=== PATIENT | female | born 1945 | race African-American/Black ===

== ENCOUNTER → 2018-03-15 | Outpatient (CLI) | payer OTHER | END | disposition home or self-care (01) | LOC: KCIC CT 10:57 | DX: K83.8 Other specified diseases of biliary tract (principal); R79.89 Other specified abnormal findings of blood chemistry; Z90.49 Acquired absence of other specified parts of digestive tract; Z98.84 Bariatric surgery status | CPT/HCPCS: 74176 ==

== ENCOUNTER 2021-07-04 11:41 | Inpatient (IN) | payer OTHER ==
[~2021-07-04] VITALS: Ht 162.6 cm; Wt 113.4 kg
[~2021-07-04 11:41] MED LIST: ALLO100T PO; AMLO-186 PO; AMOX1TAB61 PO; ASPI-424 PO; CAPT25TA3 PO; FERR325T14 PO; FURO20TA3 PO; HUM100IN3 SQ; HYDR-3164 PO; LOVA40TA2 PO; METO50TA6 PO; NPH,100V SQ; POTA10TA31 PO
--- NOTE | 2021-07-04 12:19 | PHYS DOC ---
Past Medical History Past Medical History: Diabetes-Type II, High Cholesterol, Hypertension, Other Additional Past Medical Histor: Gout, HYPERPARATHYROIDISM Past Surgical History: Cholecystectomy, Other Additional Past Surgical Histo: Gastric Bypass Smoking Status: Never Smoker Alcohol Use: None Drug Use: None General Adult EDM: Chief Complaint: BRADYCARDIA HPI: HPI: Patient is a 75 year old female who presents with yesterday began feeling weak, a little lightheaded or as if she was going to pass out. She went to her primary care today just for follow-up checkup. They discovered that her heart rate was low. Patient is anywhere from 34-37 heart rate. She states today she is feeling okay. She states that she is now more short of breath than usual. Patient denies chest pain, syncope, headache, increased short of breath, nausea, vomiting, diarrhea, fever, cough, recent illness, focal weakness, numbness or tingling, vision change. Patient does take 50 mg twice daily of metoprolol daily. She states she has been on this medication for at least a year. Patient also has a history of diabetes, kidney disease, high cholesterol, gout, hyperparathyroidism, cholecystectomy and a gastric bypass. Patient does take a baby aspirin daily. She denies any pain at this time. She is currently asymptomatic. Patient is fully vaccinated for Covid. Review of Systems: Review of Systems: Constitutional: Denies fever or chills. [] Eyes: Denies change in visual acuity. [] HENT: Denies nasal congestion or sore throat. [] Respiratory: Denies cough or shortness of breath. [] Cardiovascular: Denies chest pain or edema. [] GI: Denies abdominal pain, nausea, vomiting, bloody stools or diarrhea. [] : Denies dysuria. [] Musculoskeletal: Denies back pain or joint pain. [] Integument: Denies rash. [] Neurologic: Denies headache, focal weakness or sensory changes. +Dizziness. +generalized weakness[] Endocrine: Denies polyuria or polydipsia. [] Lymphatic: Denies swollen glands. [] Psychiatric: Denies depression or anxiety. [] Heart Score: C/O Chest Pain: No HEART Score for Chest Pain: HEART Score for Chest Pain Response (Comments) Value History Slighlty/Non-Suspicious 0 ECG Nonspecific Repolarizatio 1 Age > 65 2 Risk Factors 1 or 2 Risk Factors 1 Troponin < Normal Limit 0 Total 4 Risk Factors: Risk Factors: DM, Current or recent (<one month) smoker, HTN, HLP, family history of CAD, obesity. Risk Scores: Score 0 - 3: 2.5% MACE over next 6 weeks - Discharge Home Score 4 - 6: 20.3% MACE over next 6 weeks - Admit for Clinical Observation Score 7 - 10: 72.7% MACE over next 6 weeks - Early Invasive Strategies Allergies: Allergies: Allergies Coded Allergies Type Severity Reaction Last Updated Verified No Known Drug Allergies 07/04/21 No Physical Exam: PE: Constitutional: Well developed, well nourished, no acute distress, non-toxic appearance. [] HENT: Normocephalic, atraumatic, bilateral external ears normal, oropharynx moist, no oral exudates, nose normal. [] Eyes: PERRLA, EOMI, conjunctiva normal, no discharge. [] Neck: Normal range of motion, no tenderness, supple, no stridor. [] Cardiovascular:Heart rate bradycardia regular, 1st degree rhythm, no murmur [] Lungs & Thorax: Bilateral upper breath sounds clear and lower diminished to auscultation [] Abdomen: Bowel sounds normal, soft, no tenderness, no masses, no pulsatile masses. [] Skin: Warm, dry, no erythema, no rash. [] Back: No tenderness, no CVA tenderness. [] Extremities: No tenderness, no cyanosis, no clubbing, ROM intact, no edema. [] Neurologic: Alert and oriented X 3, normal motor function, normal sensory function, no focal deficits noted. [] Psychologic: Affect normal, judgement normal, mood normal. [] Current Patient Data: Vital Signs: Vital Signs Date Time Temp Pulse Resp B/P (MAP) Pulse Ox O2 Delivery O2 Flow Rate FiO2 07/04/21 11:48 98.0 42 20 192/72 (112) 100 98.0 EKG: EK and read by Dr. Cadet as sinus bradycardia, first-degree and no STEMI Radiology/Procedures: Radiology/Procedures: [] Impression: [facility] [address] [place] [address] IMAGING REPORT Signed PATIENT: KIEL TUCKER ACCOUNT: [id number] : 1945 LOCATION: ER AGE: 75 SEX: F EXAM STATUS: REG ER ORD. PHYSICIAN: DILLON RICHARDSON APRN REASON: LOW HEART RATE PROCEDURE: PORTABLE CHEST 1V EXAM: XR CHEST 1V 07/04/2021 12:11 PM CLINICAL INDICATION: Low heart rate COMPARISON: None TECHNIQUE: AP upright view of the chest FINDINGS: Exam is limited by underpenetration due to body habitus. The cardiac silhouette is within normal limits for technique. Lungs are adequately expanded. No consolidation, pleural effusion, or pneumothorax. No acute osseous abnormality. IMPRESSION: No acute cardiopulmonary abnormality. Electronically signed by: Radha Augustine MD (07/04/2021 1:54 PM) [id number] DICTATED and SIGNED BY: RADHA AUGUSTINE MD DATE: 07/04/21 [id number] 0 Course & Med Decision Making: Course & Med Decision Making Pertinent Labs and Imaging studies reviewed. (See chart for details) See HPI. Alert and oriented x4. Ambulatory steady gait. Skin pink warm and dry. Speaks in full clear sentences. She does sound breathless and so I asked her if she was more short of breath and she states that she does not think she is any more short of breath than usual. Her special needs librarian is Dr. Ashford. Her primary care is Dr. Persaud. Moving all extremities. Neurologically intact. PERRLA. I spoke with Taylor SWINGING CUT OFF SAW OPERATOR from Cardiology and he states he will come see the patient. I spoke to Dr. Ashford who states to give Kayexalate 15 g, insulin, dextrose to get her potassium down. Dr. Cadet to would also give the calcium gluconate 2 g[address] Patient [address] to [address] Leahy. Cardiology has not given me any orders. Patient is currently still asymptomatic. [] Dragon Disclaimer: Draglinus Disclaimer: This electronic medical record was generated, in whole or in part, using a voice recognition dictation system. Departure Departure Impression: Primary Impression: Bradycardia Additional Impression: Acute kidney failure Qualified Codes: N17.9 - Acute kidney failure, unspecified Disposition: ADMITTED INPATIENT Admitting Physician: ARABELLA Condition: STABLE Referrals: UNKNOWN PCP NAME (PCP) DILLON RICHARDSON APRN Jul 04, 2021 12:19
[2021-07-04 12:25] LABS: BASO % 0 % (0-3); EOS # 0.1 x10^3/uL (0.0-0.7); EOS % 2 % (0-3); HEMATOCRIT 29.8 % (36.0-47.0); HEMOGLOBIN 9.6 g/dL (12.0-15.5); LYMPH % 39 % (24-48); MEAN CORPUSCULAR HEMOGLOBIN 32 pg (25-35); MEAN CORPUSCULAR HGB CONC 32 g/dL (31-37); MEAN CORPUSCULAR VOLUME 99 fL (79-100); MONO # 0.7 x10^3/uL (0.0-1.1); MONO % 10 % (0-9); NEUT # 3.8 x10^3/uL (1.8-7.7); NEUT % 50 % (31-73); PLATELET COUNT 167 x10^3/uL (140-400); RED CELL DISTRIBUTION WIDTH 14.1 % (11.5-14.5); WHITE BLOOD COUNT 7.7 x10^3/uL (4.0-11.0)
[2021-07-04 12:35] LABS: ALBUMIN 2.9 g/dL (3.4-5.0); ALBUMIN/GLOBULIN RATIO 0.7 (1.0-1.7); CALCIUM 8.7 mg/dL (8.5-10.1); GFR 18.3; MAGNESIUM 1.9 mg/dL (1.8-2.4); TOTAL BILIRUBIN 0.2 mg/dL (0.2-1.0); TOTAL PROTEIN 6.9 g/dL (6.4-8.2)
[2021-07-04 12:38] LABS: POTASSIUM 6.1 mmol/L (3.5-5.1)
[2021-07-04] MEDS ORDERED: INSULIN REGULAR 100 UNIT/ML 3ML VIAL. IV ONE (13:15)
[2021-07-04] MEDS ORDERED: DEXTROSE 50% 25 GM / 50ML DISP.SYRIN. IV ONE (13:15)
[2021-07-04] MEDS ORDERED: CALCIUM GLUCONATE 1,000 MG/10 ML VIAL. IVP ONE (13:15)
[2021-07-04 13:20] LABS: BILIRUBIN,URINE NEGATIVE (NEG); CLARITY,URINE CLEAR; COLOR,URINE YELLOW; NITRITE,URINE NEGATIVE (NEG); PROTEIN,URINE NEGATIVE (NEG-TRACE); UROBILINOGEN,URINE 0.2 mg/dL (0.2 mg/dL)
[2021-07-04 13:27] LABS: AMPHETAMINE/METHAMPHETAMINE NEG (NEG); BARBITURATES NEG (NEG); BENZODIAZEPINES NEG (NEG); CANNABINOIDS NEG (NEG); COCAINE NEG (NEG); METHADONE NEG (NEG); OPIATES NEG (NEG); PHENCYCLIDINE NEG (NEG)
[2021-07-04 13:28] LABS: HYALINE CASTS, URINE MODERATE /HPF
[2021-07-04 13:29] LABS: AMORPHOUS SEDIMENT,UR PRESENT /HPF; BACTERIA,URINE FEW /HPF (0-FEW); RBC,URINE 0 /HPF (0-2)
[2021-07-04] MEDS ORDERED: ACETAMINOPHEN 325 MG TABLET. PO PRN ×2 (13:30→14:45)
[2021-07-04] MEDS ORDERED: SODIUM POLYSTYRENE SULFON/SORB 15 GM/60 ML ORAL.SUSP. PO ONE (13:30)
--- NOTE | 2021-07-04 13:56 | RAD ---
EXAM: XR CHEST 1V 07/04/2021 12:11 PM CLINICAL INDICATION: Low heart rate COMPARISON: None TECHNIQUE: AP upright view of the chest FINDINGS: Exam is limited by underpenetration due to body habitus. The cardiac silhouette is within n ormal limits for technique. Lungs are adequately expanded. No consolidation, pleural effusion, or pne umothorax. No acute osseous abnormality. IMPRESSION: No acute cardiopulmonary abnormality. Electronically signed by: Radha Augustine MD (07/04/2021 1:54 PM) [id number]
--- NOTE | 2021-07-04 14:30 | PDOC1 ---
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 She also has been complaining of generalized weakness and shortness of breath. Currently denies any chest pain, syncope, palpitations, headache, nausea vomiting, diarrhea or dysuria. Denies any recent sick contacts. On arrival to the emergency department her blood pressure was elevated in the 190s systolic and also her heart rate with wrist pain 37-47. She does take 50 mg of metoprolol twice daily. She states he has been taking this particular medication for a year. She also takes aspirin daily. Patient is vaccinated for Covid. Past Medical/Surgical History: PMH/PSH: Past Medical History: Diabetes-Type II, High Cholesterol, Hypertension, Gout, HYPERPARATHYROIDISM Past Surgical History: Cholecystectomy, Gastric Bypass Allergies: Allergies: Coded Allergies: No Known Drug Allergies (Unverified , 07/04/21) Family History: Family History: Diabetes in the father and CHF in the mother Social History: Social History: Smoking Status: Never Smoker Alcohol Use: None Drug Use: None Current Medications: Current Medications Current Medications Calcium Gluconate (Calcium Gluconate) 2,000 mg 1X ONCE IVP Last administered on 07/04/21at 13:38; Start 07/04/21 at 13:15; Stop 07/04/21 at 13:17; Status DC Dextrose (Dextrose 50%-Water Syringe) 25 gm 1X ONCE IV Last administered on 07/04/21at 13:36; Start 07/04/21 at 13:15; Stop 07/04/21 at 13:17; Status DC Insulin Human Regular (HumuLIN R VIAL) 10 unit 1X ONCE IV Last administered on 07/04/21at 13:55; Start 07/04/21 at 13:15; Stop 07/04/21 at 13:17; Status DC Sodium Polystyrene Sulfonate (Kayexalate) 15 gm 1X ONCE PO Last administered on 07/04/21at 13:37; Start 07/04/21 at 13:30; Stop 07/04/21 at 13:31; Status DC Acetaminophen (Tylenol) 650 mg PRN Q4HRS PRN PO FEVER > 100.3'F; Start 07/04/21 at 13:30; Stop 07/05/21 at 13:29 Amlodipine Besylate (Norvasc) 5 mg DAILY PO ; Start 07/04/21 at 15:00 Aspirin (Ecotrin) 81 mg DAILY PO ; Start 07/04/21 at 15:00 Atorvastatin Calcium (Lipitor) 10 mg DAILY PO ; Start 07/04/21 at 15:00 Hydralazine HCl (Apresoline Inj) 10 mg PRN Q4HRS PRN IVP ELEVATED BP, SEE COMMENTS; Start 07/04/21 at 13:45 Active Scripts Active Ferrous Sulfate 325 Mg Tablet 1 Tab PO DAILY [place] 5-325 Tablet (Acetaminophen/Hydrocodone Bitart) 1 Each Tablet 1 Tab PO BID Augmentin 875-125 Tablet (Amoxicillin/Potassium Clav) 1 Each Tablet 1 Tab PO BID Reported Humulin N (Nph, Human Insulin Isophane) 100 Unit/1 Ml Vial 25 Unit SQ DAILY08 Amlodipine Besylate 5 Mg Tablet 1 Tab PO DAILY Allopurinol 100 Mg Tablet 1 Tab PO BID Adult Low Dose Aspirin Ec (Aspirin) 81 Mg Tablet.dr 1 Tab PO DAILY Humulin 70/30 Kwikpen (Hum Insulin Nph/Reg Insulin Hm) 100 Unit/1 Ml Insuln.pen 35 Units SQ HS Lovastatin 40 Mg Tablet 1 Tab PO DAILY Metoprolol Tartrate 50 Mg Tablet 1 Tab PO BID Captopril 25 Mg Tablet 1 Tab PO DAILY ROS: Review of Systems Review of System REVIEW OF SYSTEMS: GENERAL: Positive for generalized weakness SKIN: No bruising, hair changes or rashes. EYES: No blurred, double or loss of vision. NOSE AND THROAT: No history of nosebleeds, hoarseness or sore throat. HEART: Positive for shortness of breath LUNGS: Denies cough, hemoptysis, wheezing or shortness of breath. GASTROINTESTINAL: Denies changes in appetite, nausea, vomiting, diarrhea or constipation. GENITOURINARY: No history of frequency, urgency, hesitancy or nocturia. NEUROLOGIC: Denies history of numbness, tingling, or tremor. PSYCHIATRIC: No history of panic, anxiety or depression. ENDOCRINE: No history of heat or cold intolerance, polyuria or polydipsia. EXTREMITIES: Denies joint pain, pain on walking or stiffness. Physical Exam: Vital Signs: Vital Signs Date Time Temp Pulse Resp B/P (MAP) Pulse Ox O2 Delivery O2 Flow Rate FiO2 07/04/21 11:48 98.0 42 20 192/72 (112) 100 98.0 Physcial Exam: General: Well developed, well nourished, no acute distress, well appearing HEENT: Pupils equally round and reactive to light, EOMI, no discharge, normal conjunctiva Neck: Supple, no nuchal rigidity, no JVD, trachea midline, no tenderness Cardiac: RRR, no murmurs, no gallops, no rubs Chest/Lungs: CTAB, no wheeze, no rhonchi, no crackles Abdomen: soft, non-distended, no guarding, no peritoneal signs, non-tender Back: No tenderness Extremities: no edema, pulses intact, non-tender,capillary refill <3 sec bilateral upper and lower extremities, Neuro: Alert and oriented x 4, no focal deficits, normal speech Labs: Labs: Laboratory Tests Test 07/04/21 12:10 07/04/21 13:10 White Blood Count 7.7 x10^3/uL (4.0-11.0) Red Blood Count 3.00 x10^6/uL (3.50-5.40) Hemoglobin 9.6 g/dL (12.0-15.5) Hematocrit 29.8 % (36.0-47.0) Mean Corpuscular Volume 99 fL (79-100) Mean Corpuscular Hemoglobin 32 pg (25-35) Mean Corpuscular Hemoglobin Concent 32 g/dL (31-37) Red Cell Distribution Width 14.1 % (11.5-14.5) Platelet Count 167 x10^3/uL (140-400) Neutrophils (%) (Auto) 50 % (31-73) Lymphocytes (%) (Auto) 39 % (24-48) Monocytes (%) (Auto) 10 % (0-9) Eosinophils (%) (Auto) 2 % (0-3) Basophils (%) (Auto) 0 % (0-3) Neutrophils # (Auto) 3.8 x10^3/uL (1.8-7.7) Lymphocytes # (Auto) 3.0 x10^3/uL (1.0-4.8) Monocytes # (Auto) 0.7 x10^3/uL (0.0-1.1) Eosinophils # (Auto) 0.1 x10^3/uL (0.0-0.7) Basophils # (Auto) 0.0 x10^3/uL (0.0-0.2) Sodium Level 142 mmol/L (136-145) Potassium Level 6.1 mmol/L (3.5-5.1) Chloride Level 113 mmol/L (98-107) Carbon Dioxide Level 21 mmol/L (21-32) Anion Gap 8 (6-14) Blood Urea Nitrogen 48 mg/dL (7-20) Creatinine 3.0 mg/dL (0.6-1.0) Estimated GFR (Cockcroft-Gault) 18.3 BUN/Creatinine Ratio 16 (6-20) Glucose Level 142 mg/dL (70-99) Calcium Level 8.7 mg/dL (8.5-10.1) Magnesium Level 1.9 mg/dL (1.8-2.4) Total Bilirubin 0.2 mg/dL (0.2-1.0) Aspartate Amino Transf (AST/SGOT) 66 U/L (15-37) Alanine Aminotransferase (ALT/SGPT) 102 U/L (14-59) Alkaline Phosphatase 186 U/L (46-116) Troponin I Quantitative < 0.017 ng/mL (0.000-0.055) DU-Mmq-X-Type Natriuretic Peptide 2237 pg/mL (0-449) Total Protein 6.9 g/dL (6.4-8.2) Albumin 2.9 g/dL (3.4-5.0) Albumin/Globulin Ratio 0.7 (1.0-1.7) Lipase 159 U/L (73-393) Urine Collection Type Unknown Urine Color Yellow Urine Clarity Clear Urine pH 5.0 (<5.0-8.0) Urine Specific [place] 1.015 (1.000-1.030) Urine Protein Negative mg/dL (NEG-TRACE) Urine Glucose (UA) Negative mg/dL (NEG) Urine Ketones (Stick) Trace mg/dL (NEG) Urine Blood Negative (NEG) Urine Nitrite Negative (NEG) Urine Bilirubin Negative (NEG) Urine Urobilinogen Dipstick 0.2 mg/dL (0.2 mg/dL) Urine Leukocyte Esterase Negative (NEG) Urine RBC 0 /HPF (0-2) Urine WBC 1-4 /HPF (0-4) Urine Squamous Epithelial Cells Many /LPF Urine Amorphous Sediment Present /HPF Urine Bacteria Few /HPF (0-FEW) Urine Hyaline Casts Moderate /HPF Urine Mucus Slight /LPF Urine Opiates Screen Neg (NEG) Urine Methadone Screen Neg (NEG) Urine Barbiturates Neg (NEG) Urine Phencyclidine Screen Neg (NEG) Urine Amphetamine/Methamphetamine Neg (NEG) Urine Benzodiazepines Screen Neg (NEG) Urine Cocaine Screen Neg (NEG) Urine Cannabinoids Screen Neg (NEG) Urine Ethyl Alcohol Neg (NEG) Laboratory Tests Test 07/04/21 12:10 07/04/21 13:10 White Blood Count 7.7 x10^3/uL (4.0-11.0) Red Blood Count 3.00 x10^6/uL (3.50-5.40) Hemoglobin 9.6 g/dL (12.0-15.5) Hematocrit 29.8 % (36.0-47.0) Mean Corpuscular Volume 99 fL (79-100) Mean Corpuscular Hemoglobin 32 pg (25-35) Mean Corpuscular Hemoglobin Concent 32 g/dL (31-37) Red Cell Distribution Width 14.1 % (11.5-14.5) Platelet Count 167 x10^3/uL (140-400) Neutrophils (%) (Auto) 50 % (31-73) Lymphocytes (%) (Auto) 39 % (24-48) Monocytes (%) (Auto) 10 % (0-9) Eosinophils (%) (Auto) 2 % (0-3) Basophils (%) (Auto) 0 % (0-3) Neutrophils # (Auto) 3.8 x10^3/uL (1.8-7.7) Lymphocytes # (Auto) 3.0 x10^3/uL (1.0-4.8) Monocytes # (Auto) 0.7 x10^3/uL (0.0-1.1) Eosinophils # (Auto) 0.1 x10^3/uL (0.0-0.7) Basophils # (Auto) 0.0 x10^3/uL (0.0-0.2) Sodium Level 142 mmol/L (136-145) Potassium Level 6.1 mmol/L (3.5-5.1) Chloride Level 113 mmol/L (98-107) Carbon Dioxide Level 21 mmol/L (21-32) Anion Gap 8 (6-14) Blood Urea Nitrogen 48 mg/dL (7-20) Creatinine 3.0 mg/dL (0.6-1.0) Estimated GFR (Cockcroft-Gault) 18.3 BUN/Creatinine Ratio 16 (6-20) Glucose Level 142 mg/dL (70-99) Calcium Level 8.7 mg/dL (8.5-10.1) Magnesium Level 1.9 mg/dL (1.8-2.4) Total Bilirubin 0.2 mg/dL (0.2-1.0) Aspartate Amino Transf (AST/SGOT) 66 U/L (15-37) Alanine Aminotransferase (ALT/SGPT) 102 U/L (14-59) Alkaline Phosphatase 186 U/L (46-116) Troponin I Quantitative < 0.017 ng/mL (0.000-0.055) HC-Rhi-E-Type Natriuretic Peptide 2237 pg/mL (0-449) Total Protein 6.9 g/dL (6.4-8.2) Albumin 2.9 g/dL (3.4-5.0) Albumin/Globulin Ratio 0.7 (1.0-1.7) Lipase 159 U/L (73-393) Urine Collection Type Unknown Urine Color Yellow Urine Clarity Clear Urine pH 5.0 (<5.0-8.0) Urine Specific [place] 1.015 (1.000-1.030) Urine Protein Negative mg/dL (NEG-TRACE) Urine Glucose (UA) Negative mg/dL (NEG) Urine Ketones (Stick) Trace mg/dL (NEG) Urine Blood Negative (NEG) Urine Nitrite Negative (NEG) Urine Bilirubin Negative (NEG) Urine Urobilinogen Dipstick 0.2 mg/dL (0.2 mg/dL) Urine Leukocyte Esterase Negative (NEG) Urine RBC 0 /HPF (0-2) Urine WBC 1-4 /HPF (0-4) Urine Squamous Epithelial Cells Many /LPF Urine Amorphous Sediment Present /HPF Urine Bacteria Few /HPF (0-FEW) Urine Hyaline Casts Moderate /HPF Urine Mucus Slight /LPF Urine Opiates Screen Neg (NEG) Urine Methadone Screen Neg (NEG) Urine Barbiturates Neg (NEG) Urine Phencyclidine Screen Neg (NEG) Urine Amphetamine/Methamphetamine Neg (NEG) Urine Benzodiazepines Screen Neg (NEG) Urine Cocaine Screen Neg (NEG) Urine Cannabinoids Screen Neg (NEG) Urine Ethyl Alcohol Neg (NEG) Images: Images PROCEDURE: PORTABLE CHEST 1V EXAM: XR CHEST 1V 07/04/2021 12:11 PM CLINICAL INDICATION: Low heart rate COMPARISON: None TECHNIQUE: AP upright view of the chest FINDINGS: Exam is limited by underpenetration due to body habitus. The cardiac silhouette is within normal limits for technique. Lungs are adequately expanded. No consolidation, pleural effusion, or pneumothorax. No acute osseous abnormality. IMPRESSION: No acute cardiopulmonary abnormality. Assessment/Plan Assessment/Plan Acute symptomatic bradycardia Hyperkalemia Hypertensive emergency Acute on chronic kidney injury likely due to vasomotor nephropathy Transaminitis Elevated BNP possibly due to acute volume overload Anemia of chronic disease Morbid obesity Severe protein malnutrition Admit to hospitalist for further management Cardiology consult Nephrology consult for kidney injury Continue telemetry monitoring Hold all beta-blockers Will resume Norvasc Continue IV fluids P.o. Kayexalate and IV insulin/D50 for shifting potassium into cells Trend chemistries Heparin for DVT prophylaxis Cardiac/ADA diet CODE STATUS full Discussed with RN and SW Disposition inpatient management as above DPOA: Dav Shearer Justifications for Admission Other Justification DAV BEE MD Jul 04, 2021 14:30
--- NOTE | 2021-07-04 14:41 | EKG ---
[facility] [address] [place] [address] Test Date: 2021-07-04 Test Time: 11:48:16 Pat Name: KIEL TUCKER Department: Room: 6 1 Gender: F Pbx Wire Chief: : 1945 Requested By: DILLON RICHARDSON Order Number: [id number] Reading MD: Lucio Neves MD Measurements Intervals [place] Rate: 44 P: 54 [place]: 216 QRS: -43 QRSD: 96 T: 54 QT: 476 QTc: 410 Interpretive Statements SINUS BRADYCARDIA LAD NON-SPECIFIC ST/T CHANGES Electronically Signed On 07-04-2021 17:32:57 CDT by Lucio Neves MD
[2021-07-04] MEDS ORDERED: DOCUSATE SODIUM 100 MG CAPSULE. PO PRN (14:45)
[2021-07-04] MEDS ORDERED: DEXTROSE 50% 25 GM / 50ML DISP.SYRIN. IV PRN (14:45)
[2021-07-04] MEDS ORDERED: PROCHLORPERAZINE 10 MG/2 ML VIAL. IV PRN (14:45)
[2021-07-04] MEDS ORDERED: ONDANSETRON PF 4 MG/2 ML VIAL. IVP PRN (14:45)
[2021-07-04] MEDS ORDERED: SENNOSIDES 8.6 MG TABLET PO PRN (14:45)
--- NOTE | 2021-07-04 15:04 | PDOC2 ---
CONSULT Date of Consult Date of Consult DATE: 07/04/21 TIME: 14:56 Reason for Consult Reason for Consult: HIGH K AND RAFAT Referring Physician Referring Physician: CRISTAL Identification/Chief Complaint Chief Complaint WEAKNESS Source Source: Chart review, Patient History of Present Illness Reason for Visit: THIS IS A 75 YR WITH WEAKNESS AND DIZZINESS AND AT TIMES SHE FELT LIKE PASSING OUT. SHE WAS AT THE OFFICE TODAY SEEING RENAL REGISTER IN [facility]. AFTER EVALUATION SHE WAS APPROPRIATELY REFERRED TO THE ER. SHE DOES HAVE CKD STAGE 3B WITH BASELINE CR OF ABOUT 1.7. LYTES AND ACID BASE BALANCE HAVE ALWAYS BEEN STABLE. HER CKD IS DUE TO DM II. HR OUTSIDE OF HERE HAS ON AVG ABOUT 40 IT WAS IN THE OFFICE. HERE HR OF 40-45. HEMODYNAMICALLY STABLE. NO NEPHROTOXINS NOTED. NO OTHER HX, NO HX OF ANY KIDNEY OR BLADDER SURGERIES HEMATURIA DYSURIA OR FREQUENCY. SHE HAS OCC NOCTURIA. SHE HAS BEEN FULLY VACCINATED FOR [id number] Past Medical History Cardiovascular: CAD, HTN, Hyperlipidemia Musculoskeletal: Osteoarthritis Rheumatologic: Gout Renal/: Chronic renal insuff Endocrine: Diabetes, Hyperparathyroidism Past Surgical History Past Surgical History: Cholecystectomy, Other Family History Family History: Diabetes, Hypertension, Other Social History No ALCOHOL: none Drugs: None Lives: with Family Current Problem List Problem List Problems Medical Problems: (1) Acute kidney failure Status: Acute (2) Bradycardia Status: Acute Current Medications Current Medications Current Medications Calcium Gluconate (Calcium Gluconate) 2,000 mg 1X ONCE IVP Last administered on 07/04/21at 13:38; Start 07/04/21 at 13:15; Stop 07/04/21 at 13:17; Status DC Dextrose (Dextrose 50%-Water Syringe) 25 gm 1X ONCE IV Last administered on 07/04/21at 13:36; Start 07/04/21 at 13:15; Stop 07/04/21 at 13:17; Status DC Insulin Human Regular (HumuLIN R VIAL) 10 unit 1X ONCE IV Last administered on 07/04/21at 13:55; Start 07/04/21 at 13:15; Stop 07/04/21 at 13:17; Status DC Sodium Polystyrene Sulfonate (Kayexalate) 15 gm 1X ONCE PO Last administered on 07/04/21at 13:37; Start 07/04/21 at 13:30; Stop 07/04/21 at 13:31; Status DC Acetaminophen (Tylenol) 650 mg PRN Q4HRS PRN PO FEVER > 100.3'F; Start 07/04/21 at 13:30; Stop 07/05/21 at 13:29 Amlodipine Besylate (Norvasc) 5 mg DAILY PO ; Start 07/04/21 at 15:00 Aspirin (Ecotrin) 81 mg DAILY PO ; Start 07/04/21 at 15:00 Atorvastatin Calcium (Lipitor) 10 mg DAILY PO ; Start 07/04/21 at 15:00 Hydralazine HCl (Apresoline Inj) 10 mg PRN Q4HRS PRN IVP ELEVATED BP, SEE COMMENTS; Start 07/04/21 at 13:45 Sennosides (Senna) 17.2 mg PRN BID PRN PO CONSTIPATION; Start 07/04/21 at 14:45 Docusate Sodium (Colace) 100 mg PRN DAILY PRN PO HARD STOOLS; Start 07/04/21 at 14:45 Ondansetron HCl (Zofran) 4 mg PRN Q6HRS PRN IVP NAUSEA/VOMITING; Start 07/04/21 at 14:45 Dextrose (Dextrose 50%-Water Syringe) 12.5 gm PRN Q15MIN PRN IV SEE COMMENTS; Start 07/04/21 at 14:45 Sodium Chloride 1,000 ml @ 100 mls/hr Q10H IV ; Start 07/04/21 at 15:00 Acetaminophen (Tylenol) 650 mg PRN Q4HRS PRN PO TEMP OVER 100.4F OR MILD PAIN; Start 07/04/21 at 14:45 Heparin Sodium (Porcine) (Heparin Sodium) 5,000 unit Q12HR SQ ; Start 07/04/21 at 21:00 Prochlorperazine Edisylate (Compazine) 10 mg PRN Q6HRS PRN IV NAUSEA/VOMITING 2ND CHOICE; Start 07/04/21 at 14:45 Active Scripts Active Ferrous Sulfate 325 Mg Tablet 1 Tab PO DAILY [place] 5-325 Tablet (Acetaminophen/Hydrocodone Bitart) 1 Each Tablet 1 Tab PO BID Augmentin 875-125 Tablet (Amoxicillin/Potassium Clav) 1 Each Tablet 1 Tab PO BID Reported Humulin N (Nph, Human Insulin Isophane) 100 Unit/1 Ml Vial 25 Unit SQ DAILY08 Amlodipine Besylate 5 Mg Tablet 1 Tab PO DAILY Allopurinol 100 Mg Tablet 1 Tab PO BID Adult Low Dose Aspirin Ec (Aspirin) 81 Mg Tablet.dr 1 Tab PO DAILY Humulin 70/30 Kwikpen (Hum Insulin Nph/Reg Insulin Hm) 100 Unit/1 Ml Insuln.pen 35 Units SQ HS Lovastatin 40 Mg Tablet 1 Tab PO DAILY Metoprolol Tartrate 50 Mg Tablet 1 Tab PO BID Captopril 25 Mg Tablet 1 Tab PO DAILY Allergies Allergies: Coded Allergies: No Known Drug Allergies (Unverified , 07/04/21) ROS General: YES: Fatigue, Malaise PSYCHOLOGICAL ROS: YES: Anxiety Eyes: Yes Decreased vision ALLERGY AND IMMUNOLOGY: YES: Seasonal Allergies Respiratory: YES: Cough Cardiovascular: yes Lt [place] Gastrointestinal: Yes Constipation Genitourinary: YES Other (NOCTURIA) Musculoskeletal: Yes Muscular Weakness Neurological: Yes Dizziness, Yes Weakness Skin: Yes Dry Skin Physical Exam General: Alert, Oriented X3, Cooperative, No acute distress HEENT: Atraumatic, PERRLA Lungs: Clear to auscultation Heart: Other (PIPO) Abdomen: Normal bowel sounds, Soft Extremities: No cyanosis Skin: No breakdown Neuro: Normal speech Psych/Mental Status: Mental status NL, Mood NL MUSCULOSKELETAL: No joint tenderness, No deformity, No swelling Vitals VITALS Vital Signs Date Time Temp Pulse Resp B/P (MAP) Pulse Ox O2 Delivery O2 Flow Rate FiO2 07/04/21 11:48 98.0 42 20 192/72 (112) 100 98.0 Labs Labs Laboratory Tests Test 07/04/21 12:10 07/04/21 13:10 07/04/21 13:44 White Blood Count 7.7 x10^3/uL (4.0-11.0) Red Blood Count 3.00 x10^6/uL (3.50-5.40) Hemoglobin 9.6 g/dL (12.0-15.5) Hematocrit 29.8 % (36.0-47.0) Mean Corpuscular Volume 99 fL (79-100) Mean Corpuscular Hemoglobin 32 pg (25-35) Mean Corpuscular Hemoglobin Concent 32 g/dL (31-37) Red Cell Distribution Width 14.1 % (11.5-14.5) Platelet Count 167 x10^3/uL (140-400) Neutrophils (%) (Auto) 50 % (31-73) Lymphocytes (%) (Auto) 39 % (24-48) Monocytes (%) (Auto) 10 % (0-9) Eosinophils (%) (Auto) 2 % (0-3) Basophils (%) (Auto) 0 % (0-3) Neutrophils # (Auto) 3.8 x10^3/uL (1.8-7.7) Lymphocytes # (Auto) 3.0 x10^3/uL (1.0-4.8) Monocytes # (Auto) 0.7 x10^3/uL (0.0-1.1) Eosinophils # (Auto) 0.1 x10^3/uL (0.0-0.7) Basophils # (Auto) 0.0 x10^3/uL (0.0-0.2) Sodium Level 142 mmol/L (136-145) Potassium Level 6.1 mmol/L (3.5-5.1) Chloride Level 113 mmol/L (98-107) Carbon Dioxide Level 21 mmol/L (21-32) Anion Gap 8 (6-14) Blood Urea Nitrogen 48 mg/dL (7-20) Creatinine 3.0 mg/dL (0.6-1.0) Estimated GFR (Cockcroft-Gault) 18.3 BUN/Creatinine Ratio 16 (6-20) Glucose Level 142 mg/dL (70-99) Calcium Level 8.7 mg/dL (8.5-10.1) Magnesium Level 1.9 mg/dL (1.8-2.4) Total Bilirubin 0.2 mg/dL (0.2-1.0) Aspartate Amino Transf (AST/SGOT) 66 U/L (15-37) Alanine Aminotransferase (ALT/SGPT) 102 U/L (14-59) Alkaline Phosphatase 186 U/L (46-116) Troponin I Quantitative < 0.017 ng/mL (0.000-0.055) VB-Thj-U-Type Natriuretic Peptide 2237 pg/mL (0-449) Total Protein 6.9 g/dL (6.4-8.2) Albumin 2.9 g/dL (3.4-5.0) Albumin/Globulin Ratio 0.7 (1.0-1.7) Lipase 159 U/L (73-393) Urine Collection Type Unknown Urine Color Yellow Urine Clarity Clear Urine pH 5.0 (<5.0-8.0) Urine Specific [place] 1.015 (1.000-1.030) Urine Protein Negative mg/dL (NEG-TRACE) Urine Glucose (UA) Negative mg/dL (NEG) Urine Ketones (Stick) Trace mg/dL (NEG) Urine Blood Negative (NEG) Urine Nitrite Negative (NEG) Urine Bilirubin Negative (NEG) Urine Urobilinogen Dipstick 0.2 mg/dL (0.2 mg/dL) Urine Leukocyte Esterase Negative (NEG) Urine RBC 0 /HPF (0-2) Urine WBC 1-4 /HPF (0-4) Urine Squamous Epithelial Cells Many /LPF Urine Amorphous Sediment Present /HPF Urine Bacteria Few /HPF (0-FEW) Urine Hyaline Casts Moderate /HPF Urine Mucus Slight /LPF Urine Opiates Screen Neg (NEG) Urine Methadone Screen Neg (NEG) Urine Barbiturates Neg (NEG) Urine Phencyclidine Screen Neg (NEG) Urine Amphetamine/Methamphetamine Neg (NEG) Urine Benzodiazepines Screen Neg (NEG) Urine Cocaine Screen Neg (NEG) Urine Cannabinoids Screen Neg (NEG) Urine Ethyl Alcohol Neg (NEG) SARS-CoV-2 Antigen (Rapid) Negative (NEGATIVE) Laboratory Tests Test 07/04/21 12:10 07/04/21 13:10 07/04/21 13:44 White Blood Count 7.7 x10^3/uL (4.0-11.0) Red Blood Count 3.00 x10^6/uL (3.50-5.40) Hemoglobin 9.6 g/dL (12.0-15.5) Hematocrit 29.8 % (36.0-47.0) Mean Corpuscular Volume 99 fL (79-100) Mean Corpuscular Hemoglobin 32 pg (25-35) Mean Corpuscular Hemoglobin Concent 32 g/dL (31-37) Red Cell Distribution Width 14.1 % (11.5-14.5) Platelet Count 167 x10^3/uL (140-400) Neutrophils (%) (Auto) 50 % (31-73) Lymphocytes (%) (Auto) 39 % (24-48) Monocytes (%) (Auto) 10 % (0-9) Eosinophils (%) (Auto) 2 % (0-3) Basophils (%) (Auto) 0 % (0-3) Neutrophils # (Auto) 3.8 x10^3/uL (1.8-7.7) Lymphocytes # (Auto) 3.0 x10^3/uL (1.0-4.8) Monocytes # (Auto) 0.7 x10^3/uL (0.0-1.1) Eosinophils # (Auto) 0.1 x10^3/uL (0.0-0.7) Basophils # (Auto) 0.0 x10^3/uL (0.0-0.2) Sodium Level 142 mmol/L (136-145) Potassium Level 6.1 mmol/L (3.5-5.1) Chloride Level 113 mmol/L (98-107) Carbon Dioxide Level 21 mmol/L (21-32) Anion Gap 8 (6-14) Blood Urea Nitrogen 48 mg/dL (7-20) Creatinine 3.0 mg/dL (0.6-1.0) Estimated GFR (Cockcroft-Gault) 18.3 BUN/Creatinine Ratio 16 (6-20) Glucose Level 142 mg/dL (70-99) Calcium Level 8.7 mg/dL (8.5-10.1) Magnesium Level 1.9 mg/dL (1.8-2.4) Total Bilirubin 0.2 mg/dL (0.2-1.0) Aspartate Amino Transf (AST/SGOT) 66 U/L (15-37) Alanine Aminotransferase (ALT/SGPT) 102 U/L (14-59) Alkaline Phosphatase 186 U/L (46-116) Troponin I Quantitative < 0.017 ng/mL (0.000-0.055) SC-Wbv-V-Type Natriuretic Peptide 2237 pg/mL (0-449) Total Protein 6.9 g/dL (6.4-8.2) Albumin 2.9 g/dL (3.4-5.0) Albumin/Globulin Ratio 0.7 (1.0-1.7) Lipase 159 U/L (73-393) Urine Collection Type Unknown Urine Color Yellow Urine Clarity Clear Urine pH 5.0 (<5.0-8.0) Urine Specific [place] 1.015 (1.000-1.030) Urine Protein Negative mg/dL (NEG-TRACE) Urine Glucose (UA) Negative mg/dL (NEG) Urine Ketones (Stick) Trace mg/dL (NEG) Urine Blood Negative (NEG) Urine Nitrite Negative (NEG) Urine Bilirubin Negative (NEG) Urine Urobilinogen Dipstick 0.2 mg/dL (0.2 mg/dL) Urine Leukocyte Esterase Negative (NEG) Urine RBC 0 /HPF (0-2) Urine WBC 1-4 /HPF (0-4) Urine Squamous Epithelial Cells Many /LPF Urine Amorphous Sediment Present /HPF Urine Bacteria Few /HPF (0-FEW) Urine Hyaline Casts Moderate /HPF Urine Mucus Slight /LPF Urine Opiates Screen Neg (NEG) Urine Methadone Screen Neg (NEG) Urine Barbiturates Neg (NEG) Urine Phencyclidine Screen Neg (NEG) Urine Amphetamine/Methamphetamine Neg (NEG) Urine Benzodiazepines Screen Neg (NEG) Urine Cocaine Screen Neg (NEG) Urine Cannabinoids Screen Neg (NEG) Urine Ethyl Alcohol Neg (NEG) SARS-CoV-2 Antigen (Rapid) Negative (NEGATIVE) Images Images EXAM: XR CHEST 1V 07/04/2021 12:11 PM CLINICAL INDICATION: Low heart rate COMPARISON: None TECHNIQUE: AP upright view of the chest FINDINGS: Exam is limited by underpenetration due to body habitus. The cardiac silhouette is within normal limits for technique. Lungs are adequately expanded. No consolidation, pleural effusion, or pneumothorax. No acute osseous abnormality. IMPRESSION: No acute cardiopulmonary abnormality. Electronically signed by: Radha Augustine MD (07/04/2021 1:54 PM) [id number] Assessment/Plan Assessment/Plan IMP SYMPTOMATIC BRADYCARDIA HYPERKALEMIA RAFAT WITH CR OF 3.1 CKD STAGE 3B WITH CR OF 1.65 ON AUF 18 THIS YEAR PROTEINURIA DM II HTN HX HX OF GOUT PLAN PT HAS RECEIVED KAYEXALATE ALSO INSULIN AND D50 GIVEN START HYDRATION HOLD BETA STEW HOLD CAPOTEN RESUME NORVASC RENAL SONOGRAM AND UA IF RENAL FXN NOT BETTER AFTER ABOVE MEASURES WILL FOLLOW CASE D/W CARDIOLOGY NATALIIA CALLAHAN MD Jul 04, 2021 15:04
[2021-07-04 15:05] VITALS: BP 185/79
--- NOTE | 2021-07-04 15:17 | PDOC2 ---
CARDIAC CONSULT DATE OF CONSULT Date of Consult DATE: 07/04/21 TIME: 15:06 REASON FOR CONSULT Reason for Consult: Bradycardia REFERRING PHYSICIAN Referring Physician: Khadra SOURCE Source: Chart review, Patient HISTORY OF PRESENT ILLNESS HISTORY OF PRESENT ILLNESS This is a pleasant 75 yo female admitted for complains of weakness. She went to her cobol developer today and was noted with bradycardia as low as in the 30s. Upon admission to ER she was at 40s. She then was confirmed to be in RAFAT with hyperkalemia and also takes metoprolol for HTN. She has been feeling more fatigue more and worse today. Also has some SOLO but no use of O2 No fever cough or chills. No dizziness or passing out. Reports that she takes her medications regularly and no recent nausea vomiting or diarrhea. No changes to her medications. Reports good hydration but could not ascertain. No prior hx of arrhythmias, CAD nor CVA. Denies any chest pain and neuro symptoms. She has been vaccinated for covid-19. She does not use ibuprofen nor aleve. PAST MEDICAL HISTORY Cardiovascular: HTN, Hyperlipidemia Pulmonary: No pertinent hx CENTRAL NERVOUS SYSTEM: Other (No pertinent history) GI: Other (hx of gastric bypass) Heme/Onc: Anemia NOS Hepatobiliary: No pertinent hx Psych: No pertinent hx Musculoskeletal: Osteoarthritis Rheumatologic: Gout Infectious disease: No pertinent hx ENT: No pertinent hx Renal/: Chronic renal insuff Endocrine: Diabetes Dermatology: No pertinent hx PAST SURGICAL HISTORY Past Surgical History: Appendectomy, Other (gastric bypass) FAMILY HISTORY Family History noncontibutory to CV SOCIAL HISTORY Smoke: No ALCOHOL: none Drugs: None Lives: Alone CURRENT MEDICATIONS CURRENT MEDICATIONS Current Medications Medications (Trade) Dose Ordered Sig/Christiano Route PRN Reason Start Time Stop Time Status Last Admin Dose Admin Calcium Gluconate (Calcium Gluconate) 2,000 mg 1X ONCE IVP 07/04/21 13:15 07/04/21 13:17 DC 07/04/21 13:38 Dextrose (Dextrose 50%-Water Syringe) 25 gm 1X ONCE IV 07/04/21 13:15 07/04/21 13:17 DC 07/04/21 13:36 Insulin Human Regular (HumuLIN R VIAL) 10 unit 1X ONCE IV 07/04/21 13:15 07/04/21 13:17 DC 07/04/21 13:55 Sodium Polystyrene Sulfonate (Kayexalate) 15 gm 1X ONCE PO 07/04/21 13:30 07/04/21 13:31 DC 07/04/21 13:37 ALLERGIES ALLERGIES: Coded Allergies: No Known Drug Allergies (Unverified , 07/04/21) ROS Review of System 14 point ROS evaluated with pertinent positives noted per HPI PHYSICAL EXAM General: Alert, Oriented X3, Cooperative, No acute distress HEENT: Atraumatic, Mucous membr. moist/pink Lungs: Clear to auscultation, Normal air movement Heart: Regular rate (SB 50s), Normal S1, Normal S2, Other (distant heart sounds) Abdomen: Soft, No tenderness Extremities: No cyanosis, Other (1+ bilateral LE pitting edema) Skin: No breakdown Neuro: Normal speech, Sensation intact Psych/Mental Status: Mental status NL, Mood NL MUSCULOSKELETAL: Osteoarthritic changes both hands VITALS/I&O VITALS/I&O: Vital Signs Date Time Temp Pulse Resp B/P (MAP) Pulse Ox O2 Delivery O2 Flow Rate FiO2 07/04/21 14:30 58 24 157/68 (97) 100 Room Air 07/04/21 11:48 98.0 98.0 LABS Lab: Laboratory Tests Test 07/04/21 12:10 07/04/21 13:10 07/04/21 13:44 White Blood Count 7.7 x10^3/uL (4.0-11.0) Red Blood Count 3.00 x10^6/uL (3.50-5.40) L Hemoglobin 9.6 g/dL (12.0-15.5) L Hematocrit 29.8 % (36.0-47.0) L Mean Corpuscular Volume 99 fL (79-100) Mean Corpuscular Hemoglobin 32 pg (25-35) Mean Corpuscular Hemoglobin Concent 32 g/dL (31-37) Red Cell Distribution Width 14.1 % (11.5-14.5) Platelet Count 167 x10^3/uL (140-400) Neutrophils (%) (Auto) 50 % (31-73) Lymphocytes (%) (Auto) 39 % (24-48) Monocytes (%) (Auto) 10 % (0-9) H Eosinophils (%) (Auto) 2 % (0-3) Basophils (%) (Auto) 0 % (0-3) Neutrophils # (Auto) 3.8 x10^3/uL (1.8-7.7) Lymphocytes # (Auto) 3.0 x10^3/uL (1.0-4.8) Monocytes # (Auto) 0.7 x10^3/uL (0.0-1.1) Eosinophils # (Auto) 0.1 x10^3/uL (0.0-0.7) Basophils # (Auto) 0.0 x10^3/uL (0.0-0.2) Sodium Level 142 mmol/L (136-145) Potassium Level 6.1 mmol/L (3.5-5.1) *H Chloride Level 113 mmol/L (98-107) H Carbon Dioxide Level 21 mmol/L (21-32) Anion Gap 8 (6-14) Blood Urea Nitrogen 48 mg/dL (7-20) H Creatinine 3.0 mg/dL (0.6-1.0) H Estimated GFR (Cockcroft-Gault) 18.3 BUN/Creatinine Ratio 16 (6-20) Glucose Level 142 mg/dL (70-99) H Calcium Level 8.7 mg/dL (8.5-10.1) Magnesium Level 1.9 mg/dL (1.8-2.4) Total Bilirubin 0.2 mg/dL (0.2-1.0) Aspartate Amino Transferase (AST) 66 U/L (15-37) H Alanine Aminotransferase (ALT) 102 U/L (14-59) H Alkaline Phosphatase 186 U/L (46-116) H Troponin I Quantitative < 0.017 ng/mL (0.000-0.055) VC-Obk-B-Type Natriuretic Peptide 2237 pg/mL (0-449) H Total Protein 6.9 g/dL (6.4-8.2) Albumin 2.9 g/dL (3.4-5.0) L Albumin/Globulin Ratio 0.7 (1.0-1.7) L Lipase 159 U/L (73-393) Urine Collection Type Unknown Urine Color Yellow Urine Clarity Clear Urine pH 5.0 (<5.0-8.0) Urine Specific [place] 1.015 (1.000-1.030) Urine Protein Negative mg/dL (NEG-TRACE) Urine Glucose (UA) Negative mg/dL (NEG) Urine Ketones (Stick) Trace mg/dL (NEG) Urine Blood Negative (NEG) Urine Nitrite Negative (NEG) Urine Bilirubin Negative (NEG) Urine Urobilinogen Dipstick 0.2 mg/dL (0.2 mg/dL) Urine Leukocyte Esterase Negative (NEG) Urine RBC 0 /HPF (0-2) Urine WBC 1-4 /HPF (0-4) Urine Squamous Epithelial Cells Many /LPF Urine Amorphous Sediment Present /HPF Urine Bacteria Few /HPF (0-FEW) Urine Hyaline Casts Moderate /HPF Urine Mucus Slight /LPF Urine Opiates Screen Neg (NEG) Urine Methadone Screen Neg (NEG) Urine Barbiturates Neg (NEG) Urine Phencyclidine Screen Neg (NEG) Urine Amphetamine/Methamphetamine Neg (NEG) Urine Benzodiazepines Screen Neg (NEG) Urine Cocaine Screen Neg (NEG) Urine Cannabinoids Screen Neg (NEG) Urine Ethyl Alcohol Neg (NEG) SARS-CoV-2 Antigen (Rapid) Negative (NEGATIVE) Laboratory Tests 07/04/21 12:10 Laboratory Tests 07/04/21 12:10 ASSESSMENT/PLAN ASSESSMENT/PLAN 1. Symptomatic bradycardia: notable for fatigue with associated use of BB and hyperkalemia. rate now in 50s with first degree AV block. no pauses 2. HTN urgency 3. RAFAT on CKD 3 with hyperkalemia 4. HLP: on statin 5. DM2: per PCP 6. Hx of gastric bypass 7. Anemia of chronic disease 8. Morbid obesity Recommendations 1. DC ACEi. Hold metoprolol. Resume norvasc. Hydralazine IV PRN. Monitor rhythm 2. Secondary prevention measures 3. IVF per nphrology. K reversal agents given in ED 4. Will consider for TTE BRONSON GARC[employer] Jul 04, 2021 15:17
[2021-07-04 15:21] VITALS: BP 185/76
[2021-07-04] MEDS: IV NORMAL SALINE 1000ML BAG 1,000 ML IV SCH (16:00)
[2021-07-04] MEDS: ASPIRIN ENTERIC COATED 81 MG TABLET.DR. PO SCH (16:32)
[2021-07-04] MEDS: ATORVASTATIN CALCIUM 10 MG TABLET. PO SCH (16:33)
[2021-07-04 17:51] VITALS: BP 200/76
[2021-07-04] MEDS: hydrALAZINE 20 MG/ML VIAL. IVP PRN (17:57)
[2021-07-04 18:49] VITALS: BP 156/64
[2021-07-04] MEDS: HEPARIN for SUB-Q USE 5,000 UNIT/ML VIAL. SQ SCH (21:24)
[2021-07-04 23:35] VITALS: BP 163/69
[2021-07-05] VITALS (7 sets, daily range): BP systolic 152–168; BP diastolic 67–86
[2021-07-05] MEDS: IV NORMAL SALINE 1000ML BAG 1,000 ML IV SCH (01:09)
[2021-07-05 04:59] LABS: BASO % 0 % (0-3); EOS # 0.2 x10^3/uL (0.0-0.7); EOS % 3 % (0-3); HEMATOCRIT 28.1 % (36.0-47.0); HEMOGLOBIN 9.2 g/dL (12.0-15.5); LYMPH # 2.6 x10^3/uL (1.0-4.8); LYMPH % 39 % (24-48); MEAN CORPUSCULAR HEMOGLOBIN 33 pg (25-35); MEAN CORPUSCULAR HGB CONC 33 g/dL (31-37); MEAN CORPUSCULAR VOLUME 100 fL (79-100); MONO # 0.6 x10^3/uL (0.0-1.1); MONO % 9 % (0-9); NEUT # 3.3 x10^3/uL (1.8-7.7); NEUT % 49 % (31-73); PLATELET COUNT 144 x10^3/uL (140-400); RED BLOOD COUNT 2.82 x10^6/uL (3.50-5.40); WHITE BLOOD COUNT 6.8 x10^3/uL (4.0-11.0)
[2021-07-05 05:16] LABS: CALCIUM 8.6 mg/dL (8.5-10.1); CREATININE 2.1 mg/dL (0.6-1.0); GFR 27.6; MAGNESIUM 1.9 mg/dL (1.8-2.4); PHOSPHORUS 3.9 mg/dL (2.6-4.7)
[2021-07-05 05:19] LABS: POTASSIUM 5.3 mmol/L (3.5-5.1)
[2021-07-05] MEDS: hydrALAZINE 20 MG/ML VIAL. IVP PRN ×2 (08:24→12:24)
[2021-07-05] MEDS: HEPARIN for SUB-Q USE 5,000 UNIT/ML VIAL. SQ SCH ×2 (08:25→21:31)
[2021-07-05] MEDS: ASPIRIN ENTERIC COATED 81 MG TABLET.DR. PO SCH (08:25)
[2021-07-05] MEDS: ATORVASTATIN CALCIUM 10 MG TABLET. PO SCH (09:00)
--- NOTE | 2021-07-05 11:39 | PDOC ---
[facility] PROGRESS NOTE Date of Service DOS: DATE: 07/05/21 TIME: 11:35 Chief Complaint Chief Complaint Assessment/Plan Acute symptomatic bradycardia Hyperkalemia Hypertensive emergency Acute on chronic kidney injury likely due to vasomotor nephropathy Transaminitis Elevated BNP possibly due to acute volume overload Anemia of chronic disease Morbid obesity Severe protein malnutrition Admit to hospitalist for further management Cardiology consult Nephrology consult for kidney injury Continue telemetry monitoring Hold all beta-blockers Will resume Norvasc Continue IV fluids P.o. 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 She also has been complaining of generalized weakness and shortness of breath. Currently denies any chest pain, syncope, palpitations, headache, nausea vomiting, diarrhea or dysuria. Denies any recent sick contacts. On arrival to the emergency department her blood pressure was elevated in the 190s systolic and also her heart rate with wrist pain 37-47. She does take 50 mg of metoprolol twice daily. She states he has been taking this particular medication for a year. She also takes aspirin daily. Patient is vaccinated for Covid. 07/05/2021 No acute events overnight. Patient seen and examined bedside. No acute telemetry monitoring events overnight. Patient symptomatic feels better her heart rate remains in the 60s today. Potassium decreased to 5.3. Will add on RISS and Accu-Cheks. Restart home dose of insulin. Patient's chart, labs, images were reviewed and discussed with RN Vitals/I&O Vitals/I&O: Vital Signs Date Time Temp Pulse Resp B/P (MAP) Pulse Ox O2 Delivery O2 Flow Rate FiO2 07/05/21 08:24 62 162/71 07/05/21 08:00 Room Air 07/05/21 07:00 98.4 16 100 98.4 I & O 07/04/21 07/04/21 07/05/21 15:00 23:00 07:00 Intake Total 1620 ml 100 ml Output Total 1 ml 0 ml Balance 1619 ml 100 ml Physical Exam General: Alert, Oriented X3, Cooperative, No acute distress Heart: Regular rate (SB 50s), Normal S1, Normal S2, Other (distant heart sounds) Abdomen: Soft, No tenderness Extremities: No cyanosis, Other (1+ bilateral LE pitting edema) Skin: No breakdown Labs Labs: Laboratory Tests Test 07/04/21 12:10 07/04/21 13:10 07/04/21 13:44 07/04/21 15:40 White Blood Count 7.7 x10^3/uL (4.0-11.0) Red Blood Count 3.00 x10^6/uL (3.50-5.40) Hemoglobin 9.6 g/dL (12.0-15.5) Hematocrit 29.8 % (36.0-47.0) Mean Corpuscular Volume 99 fL (79-100) Mean Corpuscular Hemoglobin 32 pg (25-35) Mean Corpuscular Hemoglobin Concent 32 g/dL (31-37) Red Cell Distribution Width 14.1 % (11.5-14.5) Platelet Count 167 x10^3/uL (140-400) Neutrophils (%) (Auto) 50 % (31-73) Lymphocytes (%) (Auto) 39 % (24-48) Monocytes (%) (Auto) 10 % (0-9) Eosinophils (%) (Auto) 2 % (0-3) Basophils (%) (Auto) 0 % (0-3) Neutrophils # (Auto) 3.8 x10^3/uL (1.8-7.7) Lymphocytes # (Auto) 3.0 x10^3/uL (1.0-4.8) Monocytes # (Auto) 0.7 x10^3/uL (0.0-1.1) Eosinophils # (Auto) 0.1 x10^3/uL (0.0-0.7) Basophils # (Auto) 0.0 x10^3/uL (0.0-0.2) Sodium Level 142 mmol/L (136-145) Potassium Level 6.1 mmol/L (3.5-5.1) Chloride Level 113 mmol/L (98-107) Carbon Dioxide Level 21 mmol/L (21-32) Anion Gap 8 (6-14) Blood Urea Nitrogen 48 mg/dL (7-20) Creatinine 3.0 mg/dL (0.6-1.0) Estimated GFR (Cockcroft-Gault) 18.3 BUN/Creatinine Ratio 16 (6-20) Glucose Level 142 mg/dL (70-99) Calcium Level 8.7 mg/dL (8.5-10.1) Magnesium Level 1.9 mg/dL (1.8-2.4) Total Bilirubin 0.2 mg/dL (0.2-1.0) Aspartate Amino Transf (AST/SGOT) 66 U/L (15-37) Alanine Aminotransferase (ALT/SGPT) 102 U/L (14-59) Alkaline Phosphatase 186 U/L (46-116) Troponin I Quantitative < 0.017 ng/mL (0.000-0.055) < 0.017 ng/mL (0.000-0.055) OW-Tam-F-Type Natriuretic Peptide 2237 pg/mL (0-449) Total Protein 6.9 g/dL (6.4-8.2) Albumin 2.9 g/dL (3.4-5.0) Albumin/Globulin Ratio 0.7 (1.0-1.7) Lipase 159 U/L (73-393) Thyroid Stimulating Hormone (TSH) 2.139 uIU/mL (0.358-3.74) Urine Collection Type Unknown Urine Color Yellow Urine Clarity Clear Urine pH 5.0 (<5.0-8.0) Urine Specific [place] 1.015 (1.000-1.030) Urine Protein Negative mg/dL (NEG-TRACE) Urine Glucose (UA) Negative mg/dL (NEG) Urine Ketones (Stick) Trace mg/dL (NEG) Urine Blood Negative (NEG) Urine Nitrite Negative (NEG) Urine Bilirubin Negative (NEG) Urine Urobilinogen Dipstick 0.2 mg/dL (0.2 mg/dL) Urine Leukocyte Esterase Negative (NEG) Urine RBC 0 /HPF (0-2) Urine WBC 1-4 /HPF (0-4) Urine Squamous Epithelial Cells Many /LPF Urine Amorphous Sediment Present /HPF Urine Bacteria Few /HPF (0-FEW) Urine Hyaline Casts Moderate /HPF Urine Mucus Slight /LPF Urine Opiates Screen Neg (NEG) Urine Methadone Screen Neg (NEG) Urine Barbiturates Neg (NEG) Urine Phencyclidine Screen Neg (NEG) Urine Amphetamine/Methamphetamine Neg (NEG) Urine Benzodiazepines Screen Neg (NEG) Urine Cocaine Screen Neg (NEG) Urine Cannabinoids Screen Neg (NEG) Urine Ethyl Alcohol Neg (NEG) SARS-CoV-2 RNA (MIGUEL A) Negative (Negative) SARS-CoV-2 Antigen (Rapid) Negative (NEGATIVE) Test 07/04/21 16:51 07/04/21 20:29 07/05/21 04:30 07/05/21 07:57 Glucose (Fingerstick) 284 mg/dL (70-99) 230 mg/dL (70-99) 159 mg/dL (70-99) White Blood Count 6.8 x10^3/uL (4.0-11.0) Red Blood Count 2.82 x10^6/uL (3.50-5.40) Hemoglobin 9.2 g/dL (12.0-15.5) Hematocrit 28.1 % (36.0-47.0) Mean Corpuscular Volume 100 fL (79-100) Mean Corpuscular Hemoglobin 33 pg (25-35) Mean Corpuscular Hemoglobin Concent 33 g/dL (31-37) Red Cell Distribution Width 14.0 % (11.5-14.5) Platelet Count 144 x10^3/uL (140-400) Neutrophils (%) (Auto) 49 % (31-73) Lymphocytes (%) (Auto) 39 % (24-48) Monocytes (%) (Auto) 9 % (0-9) Eosinophils (%) (Auto) 3 % (0-3) Basophils (%) (Auto) 0 % (0-3) Neutrophils # (Auto) 3.3 x10^3/uL (1.8-7.7) Lymphocytes # (Auto) 2.6 x10^3/uL (1.0-4.8) Monocytes # (Auto) 0.6 x10^3/uL (0.0-1.1) Eosinophils # (Auto) 0.2 x10^3/uL (0.0-0.7) Basophils # (Auto) 0.0 x10^3/uL (0.0-0.2) Sodium Level 146 mmol/L (136-145) Potassium Level 5.3 mmol/L (3.5-5.1) Chloride Level 116 mmol/L (98-107) Carbon Dioxide Level 21 mmol/L (21-32) Anion Gap 9 (6-14) Blood Urea Nitrogen 41 mg/dL (7-20) Creatinine 2.1 mg/dL (0.6-1.0) Estimated GFR (Cockcroft-Gault) 27.6 Glucose Level 161 mg/dL (70-99) Calcium Level 8.6 mg/dL (8.5-10.1) Phosphorus Level 3.9 mg/dL (2.6-4.7) Magnesium Level 1.9 mg/dL (1.8-2.4) Troponin I Quantitative 0.022 ng/mL (0.000-0.055) Test 07/05/21 11:28 Glucose (Fingerstick) 274 mg/dL (70-99) Assessment and Plan Assessmemt and Plan Problems Medical Problems: (1) Acute kidney failure Status: Acute (2) Bradycardia Status: Acute Comment Review of Relevant I have reviewed the following items stephen (where applicable) has been applied. Medications: Current Medications Medications (Trade) Dose Ordered Sig/Christiano Route PRN Reason Start Time Stop Time Status Last Admin Dose Admin Calcium Gluconate (Calcium Gluconate) 2,000 mg 1X ONCE IVP 07/04/21 13:15 07/04/21 13:17 DC 07/04/21 13:38 Dextrose (Dextrose 50%-Water Syringe) 25 gm 1X ONCE IV 07/04/21 13:15 07/04/21 13:17 DC 07/04/21 13:36 Insulin Human Regular (HumuLIN R VIAL) 10 unit 1X ONCE IV 07/04/21 13:15 07/04/21 13:17 DC 07/04/21 13:55 Sodium Polystyrene Sulfonate (Kayexalate) 15 gm 1X ONCE PO 07/04/21 13:30 07/04/21 13:31 DC 07/04/21 13:37 Amlodipine Besylate (Norvasc) 5 mg DAILY PO 07/04/21 15:00 07/05/21 08:23 Aspirin (Ecotrin) 81 mg DAILY PO 07/04/21 15:00 07/05/21 08:25 Atorvastatin Calcium (Lipitor) 10 mg DAILY PO 07/04/21 15:00 07/04/21 16:33 Hydralazine HCl (Apresoline Inj) 10 mg PRN Q4HRS PRN IVP ELEVATED BP, SEE COMMENTS 07/04/21 13:45 07/05/21 08:24 Sodium Chloride 1,000 ml @ 100 mls/hr Q10H IV 07/04/21 15:00 07/05/21 10:05 DC 07/05/21 01:09 Heparin Sodium (Porcine) (Heparin Sodium) 5,000 unit Q12HR SQ 07/04/21 21:00 07/05/21 08:25 Justifications for Admission Other Justification Symptomatic bradycardia DAV BEE MD Jul 05, 2021 11:39
[2021-07-05] MEDS ORDERED: DEXTROSE 50% 25 GM / 50ML DISP.SYRIN. IV PRN (11:45)
[2021-07-05] MEDS: INSULIN GLARGINE SYRINGE. SQ SCH (12:22)
[2021-07-05] MEDS: INSULIN LISPRO 300 UNITS/3 ML VIAL. SQ SCH ×2 (12:24→17:05)
--- NOTE | 2021-07-05 14:15 | PDOC ---
Renal-Progress Notes Subjective Notes Notes FEELING BETTER History of Present Illness Hx of present illness STABLE Vitals Vitals Vital Signs Date Time Temp Pulse Resp B/P (MAP) Pulse Ox O2 Delivery O2 Flow Rate FiO2 07/05/21 14:10 152/67 (95) 07/05/21 12:24 71 07/05/21 11:00 98.5 16 99 Room Air 98.5 Weight Weight [ ] I.O. Intake and Output Intake and Output 07/05/21 07:00 Intake Total 1720 ml Output Total 1 ml Balance 1719 ml Intake Oral 1720 ml Output Urine Total 0 ml Stool Total 1 ml # Voids 7 Labs Labs Laboratory Tests Test 07/04/21 15:40 07/04/21 16:51 07/04/21 20:29 07/05/21 04:30 Troponin I Quantitative < 0.017 ng/mL (0.000-0.055) 0.022 ng/mL (0.000-0.055) Glucose (Fingerstick) 284 mg/dL (70-99) 230 mg/dL (70-99) White Blood Count 6.8 x10^3/uL (4.0-11.0) Red Blood Count 2.82 x10^6/uL (3.50-5.40) Hemoglobin 9.2 g/dL (12.0-15.5) Hematocrit 28.1 % (36.0-47.0) Mean Corpuscular Volume 100 fL (79-100) Mean Corpuscular Hemoglobin 33 pg (25-35) Mean Corpuscular Hemoglobin Concent 33 g/dL (31-37) Red Cell Distribution Width 14.0 % (11.5-14.5) Platelet Count 144 x10^3/uL (140-400) Neutrophils (%) (Auto) 49 % (31-73) Lymphocytes (%) (Auto) 39 % (24-48) Monocytes (%) (Auto) 9 % (0-9) Eosinophils (%) (Auto) 3 % (0-3) Basophils (%) (Auto) 0 % (0-3) Neutrophils # (Auto) 3.3 x10^3/uL (1.8-7.7) Lymphocytes # (Auto) 2.6 x10^3/uL (1.0-4.8) Monocytes # (Auto) 0.6 x10^3/uL (0.0-1.1) Eosinophils # (Auto) 0.2 x10^3/uL (0.0-0.7) Basophils # (Auto) 0.0 x10^3/uL (0.0-0.2) Sodium Level 146 mmol/L (136-145) Potassium Level 5.3 mmol/L (3.5-5.1) Chloride Level 116 mmol/L (98-107) Carbon Dioxide Level 21 mmol/L (21-32) Anion Gap 9 (6-14) Blood Urea Nitrogen 41 mg/dL (7-20) Creatinine 2.1 mg/dL (0.6-1.0) Estimated GFR (Cockcroft-Gault) 27.6 Glucose Level 161 mg/dL (70-99) Calcium Level 8.6 mg/dL (8.5-10.1) Phosphorus Level 3.9 mg/dL (2.6-4.7) Magnesium Level 1.9 mg/dL (1.8-2.4) Test 07/05/21 07:57 07/05/21 11:28 Glucose (Fingerstick) 159 mg/dL (70-99) 274 mg/dL (70-99) Review of Systems Constitutional: yes: alert, oriented Ears/Nose/Throat: Yes: no symptom reported Eyes: Yes: no symptom reported Pulmonary: Yes no symptom reported Cardiovascular: Yes no symptom reported Gastrointestional: Yes: no symptom reported Genitourinary: Yes: no symptom reported Musculoskeletal: Yes: no symptom reported Skin: Yes no symptom reported Psychiatric/Neurological: Yes: no symptom reported Endocrine: Yes: no symptom reported Physical Exam General Appearance: no apparent distress Skin: warm Respiratory: bilateral CTA Heart: S1S2, RRR Abdomen: soft, bowel sounds present Genitourinary: bladder flat Extremities: pulses present, no edema Neurology: alert, oriented Musculoskeletal: Osteoarthritis Assessment Assessment MP SYMPTOMATIC BRADYCARDIA-BETTER HYPERKALEMIA-IMPROVED RAFAT WITH CR OF 3.1-IMPROVED TO 2.1 MILD HYPERNATREMIA CKD STAGE 3B WITH CR OF 1.65 ON AUF 18 THIS YEAR PROTEINURIA DM II HTN HX HX OF GOUT PLAN PT HAS RECEIVED KAYEXALATE CHANGE IVF TO HYPOTONIC SALINE HOLD BETA STEW HOLD CAPOTEN CONT NORVASC WILL FOLLOW CASE D/W CARDIOLOGY NATALIIA CALLAHAN MD Jul 05, 2021 14:15
[2021-07-05] MEDS: IV 1/2 NORMAL SALINE 1,000 ML IV SCH (14:45)
--- NOTE | 2021-07-05 15:13 | PDOC ---
PROGRESS NOTES Date of Service DATE: 07/05/21 TIME: 15:09 Subjective Subjective Patient seen and examined Objective Objective Vital Signs Date Time Temp Pulse Resp B/P (MAP) Pulse Ox O2 Delivery O2 Flow Rate FiO2 07/05/21 14:10 152/67 (95) 07/05/21 12:24 71 07/05/21 11:00 98.5 16 99 Room Air 98.5 Intake and Output 07/05/21 07:00 Intake Total 1720 ml Output Total 1 ml Balance 1719 ml Intake Oral 1720 ml Output Urine Total 0 ml Stool Total 1 ml # Voids 7 Physical Exam Abdomen: Normal bowel sounds Heart: Regular rate General: No acute distress HEENT: Atraumatic Lungs: Other (Slightly decreased breath sounds) Assessment Assessment Problems Medical Problems: (1) Acute kidney failure Status: Acute (2) Bradycardia Symptomatic bradycardia: Rhythm has significantly improved overnight. Potassium level down to 5.3 from 6.1. Magnesium 1.9. Holding beta-blockers. Continuing telemetry. HTN urgency. Also significantly improved. Continue present treatment. On Norvasc. KEVYN inhibitor has been discontinued. RAFAT on CKD 3 hyperkalemia significantly improved as above. Followed by the renal service. HLP: on a statin DM2: per PCP Hx of gastric bypass Anemia of chronic disease Comment Review of Relevant I have reviewed the following items stephen (where applicable) has been applied. Labs Laboratory Tests Test 07/04/21 12:10 07/04/21 13:10 07/04/21 13:44 07/04/21 15:40 White Blood Count 7.7 x10^3/uL (4.0-11.0) Red Blood Count 3.00 x10^6/uL (3.50-5.40) Hemoglobin 9.6 g/dL (12.0-15.5) Hematocrit 29.8 % (36.0-47.0) Mean Corpuscular Volume 99 fL (79-100) Mean Corpuscular Hemoglobin 32 pg (25-35) Mean Corpuscular Hemoglobin Concent 32 g/dL (31-37) Red Cell Distribution Width 14.1 % (11.5-14.5) Platelet Count 167 x10^3/uL (140-400) Neutrophils (%) (Auto) 50 % (31-73) Lymphocytes (%) (Auto) 39 % (24-48) Monocytes (%) (Auto) 10 % (0-9) Eosinophils (%) (Auto) 2 % (0-3) Basophils (%) (Auto) 0 % (0-3) Neutrophils # (Auto) 3.8 x10^3/uL (1.8-7.7) Lymphocytes # (Auto) 3.0 x10^3/uL (1.0-4.8) Monocytes # (Auto) 0.7 x10^3/uL (0.0-1.1) Eosinophils # (Auto) 0.1 x10^3/uL (0.0-0.7) Basophils # (Auto) 0.0 x10^3/uL (0.0-0.2) Sodium Level 142 mmol/L (136-145) Potassium Level 6.1 mmol/L (3.5-5.1) Chloride Level 113 mmol/L (98-107) Carbon Dioxide Level 21 mmol/L (21-32) Anion Gap 8 (6-14) Blood Urea Nitrogen 48 mg/dL (7-20) Creatinine 3.0 mg/dL (0.6-1.0) Estimated GFR (Cockcroft-Gault) 18.3 BUN/Creatinine Ratio 16 (6-20) Glucose Level 142 mg/dL (70-99) Calcium Level 8.7 mg/dL (8.5-10.1) Magnesium Level 1.9 mg/dL (1.8-2.4) Total Bilirubin 0.2 mg/dL (0.2-1.0) Aspartate Amino Transf (AST/SGOT) 66 U/L (15-37) Alanine Aminotransferase (ALT/SGPT) 102 U/L (14-59) Alkaline Phosphatase 186 U/L (46-116) Troponin I Quantitative < 0.017 ng/mL (0.000-0.055) < 0.017 ng/mL (0.000-0.055) IO-Fvm-S-Type Natriuretic Peptide 2237 pg/mL (0-449) Total Protein 6.9 g/dL (6.4-8.2) Albumin 2.9 g/dL (3.4-5.0) Albumin/Globulin Ratio 0.7 (1.0-1.7) Lipase 159 U/L (73-393) Thyroid Stimulating Hormone (TSH) 2.139 uIU/mL (0.358-3.74) Urine Collection Type Unknown Urine Color Yellow Urine Clarity Clear Urine pH 5.0 (<5.0-8.0) Urine Specific [place] 1.015 (1.000-1.030) Urine Protein Negative mg/dL (NEG-TRACE) Urine Glucose (UA) Negative mg/dL (NEG) Urine Ketones (Stick) Trace mg/dL (NEG) Urine Blood Negative (NEG) Urine Nitrite Negative (NEG) Urine Bilirubin Negative (NEG) Urine Urobilinogen Dipstick 0.2 mg/dL (0.2 mg/dL) Urine Leukocyte Esterase Negative (NEG) Urine RBC 0 /HPF (0-2) Urine WBC 1-4 /HPF (0-4) Urine Squamous Epithelial Cells Many /LPF Urine Amorphous Sediment Present /HPF Urine Bacteria Few /HPF (0-FEW) Urine Hyaline Casts Moderate /HPF Urine Mucus Slight /LPF Urine Opiates Screen Neg (NEG) Urine Methadone Screen Neg (NEG) Urine Barbiturates Neg (NEG) Urine Phencyclidine Screen Neg (NEG) Urine Amphetamine/Methamphetamine Neg (NEG) Urine Benzodiazepines Screen Neg (NEG) Urine Cocaine Screen Neg (NEG) Urine Cannabinoids Screen Neg (NEG) Urine Ethyl Alcohol Neg (NEG) SARS-CoV-2 RNA (MIGUEL A) Negative (Negative) SARS-CoV-2 Antigen (Rapid) Negative (NEGATIVE) Test 07/04/21 16:51 07/04/21 20:29 07/05/21 04:30 07/05/21 07:57 Glucose (Fingerstick) 284 mg/dL (70-99) 230 mg/dL (70-99) 159 mg/dL (70-99) White Blood Count 6.8 x10^3/uL (4.0-11.0) Red Blood Count 2.82 x10^6/uL (3.50-5.40) Hemoglobin 9.2 g/dL (12.0-15.5) Hematocrit 28.1 % (36.0-47.0) Mean Corpuscular Volume 100 fL (79-100) Mean Corpuscular Hemoglobin 33 pg (25-35) Mean Corpuscular Hemoglobin Concent 33 g/dL (31-37) Red Cell Distribution Width 14.0 % (11.5-14.5) Platelet Count 144 x10^3/uL (140-400) Neutrophils (%) (Auto) 49 % (31-73) Lymphocytes (%) (Auto) 39 % (24-48) Monocytes (%) (Auto) 9 % (0-9) Eosinophils (%) (Auto) 3 % (0-3) Basophils (%) (Auto) 0 % (0-3) Neutrophils # (Auto) 3.3 x10^3/uL (1.8-7.7) Lymphocytes # (Auto) 2.6 x10^3/uL (1.0-4.8) Monocytes # (Auto) 0.6 x10^3/uL (0.0-1.1) Eosinophils # (Auto) 0.2 x10^3/uL (0.0-0.7) Basophils # (Auto) 0.0 x10^3/uL (0.0-0.2) Sodium Level 146 mmol/L (136-145) Potassium Level 5.3 mmol/L (3.5-5.1) Chloride Level 116 mmol/L (98-107) Carbon Dioxide Level 21 mmol/L (21-32) Anion Gap 9 (6-14) Blood Urea Nitrogen 41 mg/dL (7-20) Creatinine 2.1 mg/dL (0.6-1.0) Estimated GFR (Cockcroft-Gault) 27.6 Glucose Level 161 mg/dL (70-99) Calcium Level 8.6 mg/dL (8.5-10.1) Phosphorus Level 3.9 mg/dL (2.6-4.7) Magnesium Level 1.9 mg/dL (1.8-2.4) Troponin I Quantitative 0.022 ng/mL (0.000-0.055) Test 07/05/21 11:28 Glucose (Fingerstick) 274 mg/dL (70-99) Laboratory Tests Test 07/04/21 15:40 07/04/21 16:51 07/04/21 20:29 07/05/21 04:30 Troponin I Quantitative < 0.017 ng/mL (0.000-0.055) 0.022 ng/mL (0.000-0.055) Glucose (Fingerstick) 284 mg/dL (70-99) 230 mg/dL (70-99) White Blood Count 6.8 x10^3/uL (4.0-11.0) Red Blood Count 2.82 x10^6/uL (3.50-5.40) Hemoglobin 9.2 g/dL (12.0-15.5) Hematocrit 28.1 % (36.0-47.0) Mean Corpuscular Volume 100 fL (79-100) Mean Corpuscular Hemoglobin 33 pg (25-35) Mean Corpuscular Hemoglobin Concent 33 g/dL (31-37) Red Cell Distribution Width 14.0 % (11.5-14.5) Platelet Count 144 x10^3/uL (140-400) Neutrophils (%) (Auto) 49 % (31-73) Lymphocytes (%) (Auto) 39 % (24-48) Monocytes (%) (Auto) 9 % (0-9) Eosinophils (%) (Auto) 3 % (0-3) Basophils (%) (Auto) 0 % (0-3) Neutrophils # (Auto) 3.3 x10^3/uL (1.8-7.7) Lymphocytes # (Auto) 2.6 x10^3/uL (1.0-4.8) Monocytes # (Auto) 0.6 x10^3/uL (0.0-1.1) Eosinophils # (Auto) 0.2 x10^3/uL (0.0-0.7) Basophils # (Auto) 0.0 x10^3/uL (0.0-0.2) Sodium Level 146 mmol/L (136-145) Potassium Level 5.3 mmol/L (3.5-5.1) Chloride Level 116 mmol/L (98-107) Carbon Dioxide Level 21 mmol/L (21-32) Anion Gap 9 (6-14) Blood Urea Nitrogen 41 mg/dL (7-20) Creatinine 2.1 mg/dL (0.6-1.0) Estimated GFR (Cockcroft-Gault) 27.6 Glucose Level 161 mg/dL (70-99) Calcium Level 8.6 mg/dL (8.5-10.1) Phosphorus Level 3.9 mg/dL (2.6-4.7) Magnesium Level 1.9 mg/dL (1.8-2.4) Test 07/05/21 07:57 07/05/21 11:28 Glucose (Fingerstick) 159 mg/dL (70-99) 274 mg/dL (70-99) Medications Current Medications Calcium Gluconate (Calcium Gluconate) 2,000 mg 1X ONCE IVP Last administered on 07/04/21at 13:38; Start 07/04/21 at 13:15; Stop 07/04/21 at 13:17; Status DC Dextrose (Dextrose 50%-Water Syringe) 25 gm 1X ONCE IV Last administered on 07/04/21at 13:36; Start 07/04/21 at 13:15; Stop 07/04/21 at 13:17; Status DC Insulin Human Regular (HumuLIN R VIAL) 10 unit 1X ONCE IV Last administered on 07/04/21at 13:55; Start 07/04/21 at 13:15; Stop 07/04/21 at 13:17; Status DC Sodium Polystyrene Sulfonate (Kayexalate) 15 gm 1X ONCE PO Last administered on 07/04/21at 13:37; Start 07/04/21 at 13:30; Stop 07/04/21 at 13:31; Status DC Acetaminophen (Tylenol) 650 mg PRN Q4HRS PRN PO FEVER > 100.3'F; Start 07/04/21 at 13:30; Stop 07/05/21 at 13:29; Status DC Amlodipine Besylate (Norvasc) 5 mg DAILY PO Last administered on 07/05/21at 08:23; Start 07/04/21 at 15:00 Aspirin (Ecotrin) 81 mg DAILY PO Last administered on 07/05/21at 08:25; Start 07/04/21 at 15:00 Atorvastatin Calcium (Lipitor) 10 mg DAILY PO Last administered on 07/04/21at 16:33; Start 07/04/21 at 15:00 Hydralazine HCl (Apresoline Inj) 10 mg PRN Q4HRS PRN IVP ELEVATED BP, SEE COMMENTS Last administered on 07/05/21at 12:24; Start 07/04/21 at 13:45 Sennosides (Senna) 17.2 mg PRN BID PRN PO CONSTIPATION; Start 07/04/21 at 14:45 Docusate Sodium (Colace) 100 mg PRN DAILY PRN PO HARD STOOLS; Start 07/04/21 at 14:45 Ondansetron HCl (Zofran) 4 mg PRN Q6HRS PRN IVP NAUSEA/VOMITING; Start 07/04/21 at 14:45 Dextrose (Dextrose 50%-Water Syringe) 12.5 gm PRN Q15MIN PRN IV SEE COMMENTS; Start 07/04/21 at 14:45; Status Cancel Sodium Chloride 1,000 ml @ 100 mls/hr Q10H IV Last administered on 07/05/21at 01:09; Start 07/04/21 at 15:00; Stop 07/05/21 at 10:05; Status DC Acetaminophen (Tylenol) 650 mg PRN Q4HRS PRN PO TEMP OVER 100.4F OR MILD PAIN; Start 07/04/21 at 14:45 Heparin Sodium (Porcine) (Heparin Sodium) 5,000 unit Q12HR SQ Last administered on 07/05/21at 08:25; Start 07/04/21 at 21:00 Prochlorperazine Edisylate (Compazine) 10 mg PRN Q6HRS PRN IV NAUSEA/VOMITING 2ND CHOICE; Start 07/04/21 at 14:45 Insulin Human Isoph/Insulin Regular (HumuLIN 70-30 VIAL) 35 units HS SQ ; Start 07/05/21 at 21:00 Insulin Glargine (Lantus Syringe) 25 unit DAILY SQ Last administered on 07/05/21at 12:22; Start 07/05/21 at 12:30 Insulin Human Lispro (HumaLOG) 0-7 UNITS TIDWMEALS SQ Last administered on 07/05/21at 12:24; Start 07/05/21 at 12:00 Dextrose (Dextrose 50%-Water Syringe) 12.5 gm PRN Q15MIN PRN IV SEE COMMENTS; Start 07/05/21 at 11:45 Sodium Chloride 1,000 ml @ 75 mls/hr [id number] IV Last administered on 07/05/21at 14:45; Start 07/05/21 at 14:15 Active Scripts Active Ferrous Sulfate 325 Mg Tablet 1 Tab PO DAILY [place] 5-325 Tablet (Acetaminophen/Hydrocodone Bitart) 1 Each Tablet 1 Tab PO BID Augmentin 875-125 Tablet (Amoxicillin/Potassium Clav) 1 Each Tablet 1 Tab PO BID Reported Humulin N (Nph, Human Insulin Isophane) 100 Unit/1 Ml Vial 25 Unit SQ DAILY08 Amlodipine Besylate 5 Mg Tablet 1 Tab PO DAILY Allopurinol 100 Mg Tablet 1 Tab PO BID Adult Low Dose Aspirin Ec (Aspirin) 81 Mg Tablet.dr 1 Tab PO DAILY Humulin 70/30 Kwikpen (Hum Insulin Nph/Reg Insulin Hm) 100 Unit/1 Ml Insuln.pen 35 Units SQ HS Lovastatin 40 Mg Tablet 1 Tab PO DAILY Metoprolol Tartrate 50 Mg Tablet 1 Tab PO BID Captopril 25 Mg Tablet 1 Tab PO DAILY Vitals/I & O Vital Sign - Last 24 Hours 07/04/21 07/04/21 07/04/21 07/04/21 15:21 16:33 17:51 17:57 Temp 98.0 98.0 Pulse 56 56 56 56 Resp 16 B/P (MAP) 185/76 (112) 185/76 200/76 (117) 200/76 Pulse Ox 100 O2 Delivery Room Air 07/04/21 07/04/21 07/04/21 07/05/21 18:49 20:00 23:35 02:55 Temp 98.4 98.1 98.4 98.1 Pulse 60 61 Resp 17 20 B/P (MAP) 156/64 (94) 163/69 (100) 168/86 (113) Pulse Ox 99 97 O2 Delivery Room Air Room Air Room Air 07/05/21 07/05/21 07/05/21 07/05/21 07:00 08:00 08:23 08:24 Temp 98.4 98.4 Pulse 62 61 62 Resp 16 B/P (MAP) 162/71 (101) 162/71 162/71 Pulse Ox 100 O2 Delivery Room Air Room Air 07/05/21 07/05/21 07/05/21 11:00 12:24 14:10 Temp 98.5 98.5 Pulse 65 71 Resp 16 B/P (MAP) 161/80 (107) 161/70 152/67 (95) Pulse Ox 99 O2 Delivery Room Air Intake and Output 07/04/21 07/04/21 07/05/21 15:00 23:00 07:00 Intake Total 1620 ml 100 ml Output Total 1 ml 0 ml Balance 1619 ml 100 ml Justifications for Admission Other Justification Symptomatic bradycardia NICOLE ESPAÑA MD Jul 05, 2021 15:13
[2021-07-05] MEDS ORDERED: INSULIN NPH/REG HUM 70/30 300 UNITS/3 ML VIAL. SQ SCH (21:00)
[2021-07-06 03:04] VITALS: BP 152/65
[2021-07-06] MEDS: IV 1/2 NORMAL SALINE 1,000 ML IV SCH (04:13)
[2021-07-06 05:00] LABS: BASO % 0 % (0-3); EOS # 0.1 x10^3/uL (0.0-0.7); EOS % 2 % (0-3); HEMATOCRIT 27.7 % (36.0-47.0); LYMPH # 3.1 x10^3/uL (1.0-4.8); LYMPH % 45 % (24-48); MEAN CORPUSCULAR HEMOGLOBIN 32 pg (25-35); MEAN CORPUSCULAR HGB CONC 33 g/dL (31-37); MEAN CORPUSCULAR VOLUME 99 fL (79-100); MONO # 0.8 x10^3/uL (0.0-1.1); MONO % 11 % (0-9); NEUT # 2.9 x10^3/uL (1.8-7.7); NEUT % 42 % (31-73); PLATELET COUNT 151 x10^3/uL (140-400); RED BLOOD COUNT 2.81 x10^6/uL (3.50-5.40); RED CELL DISTRIBUTION WIDTH 14.3 % (11.5-14.5); WHITE BLOOD COUNT 6.8 x10^3/uL (4.0-11.0)
[2021-07-06 05:19] LABS: CALCIUM 8.7 mg/dL (8.5-10.1); CREATININE 1.7 mg/dL (0.6-1.0); GFR 35.3; MAGNESIUM 1.7 mg/dL (1.8-2.4); POTASSIUM 4.6 mmol/L (3.5-5.1)
[2021-07-06 06:16] VITALS: BP 157/71
[2021-07-06] MEDS: INSULIN LISPRO 300 UNITS/3 ML VIAL. SQ SCH ×2 (08:00→12:04)
[2021-07-06] MEDS ORDERED: ALLO100T PO ×2 (08:04→12:32)
--- NOTE | 2021-07-06 08:05 | DISCH ---
DISCHARGE INSTRUCTIONS Condition on Discharge Condition on Discharge: Stable Activity After Discharge Activity Instructions for Disc: Activity as tolerated Lifting Instructions after Dis: No heavy lifting, Add. restrict see below Exercise Instruction after Dis: Walk 15 min, 3 x per day Driving Instructions after Dis: Do not drive today Diet after Discharge Diet after Discharge: Cardiac, Regular Wound Incision Care Wound/Incision Care: Other, see below Contacting the DR. after DC Call your doctor for: Fever greater than 100 Follow-Up Follow up with: PCP within 2 weeks of discharge Follow Up With: Nephrology as scheduled Treatment/Equipment after DC Adaptive Equipment Issued: Front wheeled DAV Ye MD Jul 06, 2021 08:05
[2021-07-06] MEDS: ASPIRIN ENTERIC COATED 81 MG TABLET.DR. PO SCH (08:42)
[2021-07-06] MEDS: HEPARIN for SUB-Q USE 5,000 UNIT/ML VIAL. SQ SCH (08:47)
[2021-07-06] MEDS: INSULIN GLARGINE SYRINGE. SQ SCH (08:49)
[2021-07-06] MEDS: ATORVASTATIN CALCIUM 10 MG TABLET. PO SCH (09:00)
[2021-07-06] MEDS ORDERED: MAGNESIUM SULFATE 1GM 100 ML IV ONE (09:00)
--- NOTE | 2021-07-06 10:27 | PDOC ---
Renal-Progress Notes Subjective Notes Notes FEELS WELL History of Present Illness Hx of present illness IMPROVED Vitals Vitals Vital Signs Date Time Temp Pulse Resp B/P (MAP) Pulse Ox O2 Delivery O2 Flow Rate FiO2 07/06/21 08:43 93 157/71 07/06/21 08:00 Room Air 07/06/21 06:16 97.8 16 95 97.8 Weight Weight [ ] I.O. Intake and Output Intake and Output 07/06/21 07:00 Intake Total 580 ml Output Total 1400 ml Balance -820 ml Intake Oral 580 ml Output Urine Total 1400 ml # Voids 1 Labs Labs Laboratory Tests Test 07/05/21 11:28 07/05/21 16:52 07/05/21 20:24 07/06/21 04:00 Glucose (Fingerstick) 274 mg/dL (70-99) 208 mg/dL (70-99) 165 mg/dL (70-99) White Blood Count 6.8 x10^3/uL (4.0-11.0) Red Blood Count 2.81 x10^6/uL (3.50-5.40) Hemoglobin 9.0 g/dL (12.0-15.5) Hematocrit 27.7 % (36.0-47.0) Mean Corpuscular Volume 99 fL (79-100) Mean Corpuscular Hemoglobin 32 pg (25-35) Mean Corpuscular Hemoglobin Concent 33 g/dL (31-37) Red Cell Distribution Width 14.3 % (11.5-14.5) Platelet Count 151 x10^3/uL (140-400) Neutrophils (%) (Auto) 42 % (31-73) Lymphocytes (%) (Auto) 45 % (24-48) Monocytes (%) (Auto) 11 % (0-9) Eosinophils (%) (Auto) 2 % (0-3) Basophils (%) (Auto) 0 % (0-3) Neutrophils # (Auto) 2.9 x10^3/uL (1.8-7.7) Lymphocytes # (Auto) 3.1 x10^3/uL (1.0-4.8) Monocytes # (Auto) 0.8 x10^3/uL (0.0-1.1) Eosinophils # (Auto) 0.1 x10^3/uL (0.0-0.7) Basophils # (Auto) 0.0 x10^3/uL (0.0-0.2) Sodium Level 143 mmol/L (136-145) Potassium Level 4.6 mmol/L (3.5-5.1) Chloride Level 113 mmol/L (98-107) Carbon Dioxide Level 20 mmol/L (21-32) Anion Gap 10 (6-14) Blood Urea Nitrogen 34 mg/dL (7-20) Creatinine 1.7 mg/dL (0.6-1.0) Estimated GFR (Cockcroft-Gault) 35.3 Glucose Level 46 mg/dL (70-99) Uric Acid 3.3 mg/dL (2.6-6.0) Calcium Level 8.7 mg/dL (8.5-10.1) Magnesium Level 1.7 mg/dL (1.8-2.4) Test 07/06/21 07:40 Glucose (Fingerstick) 100 mg/dL (70-99) Review of Systems Constitutional: yes: alert, oriented Ears/Nose/Throat: Yes: no symptom reported Eyes: Yes: no symptom reported Pulmonary: Yes no symptom reported Cardiovascular: Yes no symptom reported Gastrointestional: Yes: no symptom reported Genitourinary: Yes: no symptom reported Musculoskeletal: Yes: no symptom reported Skin: Yes no symptom reported Psychiatric/Neurological: Yes: no symptom reported Endocrine: Yes: no symptom reported Physical Exam General Appearance: no apparent distress Skin: warm Respiratory: bilateral CTA Heart: S1S2, RRR Abdomen: soft, bowel sounds present Genitourinary: bladder flat Extremities: pulses present, no edema Neurology: alert, oriented Musculoskeletal: Osteoarthritis Assessment Assessment MP SYMPTOMATIC BRADYCARDIA-RESOLVED HYPERKALEMIA-RESOLVED RAFAT - RESOLVED MILD HYPERNATREMIA-CORRECTED CKD STAGE 3B WITH CR OF 1.65 ON AUF 18 THIS YEAR PROTEINURIA DM II HTN HX HX OF GOUT PLAN OK TO D/C CONT NORVASC AVOID BETA STEW HOLD KEVYN-I TILL SEEN IN OFFICE WITH LABS D/W ATTENDING NATALIIA CALLAHAN MD Jul 06, 2021 10:27
[2021-07-06 11:00] VITALS: BP 151/56
== END 2021-07-06 13:01 | disposition home or self-care (01) | DRG 682 ==
LOC: ER 11:41 → 6 SOUTH 13:26
PROVIDERS: ADMIT Internal Medicine; ATTEND Internal Medicine
DX: N17.9 Acute kidney failure, unspecified (principal); E43 Unspecified severe protein-calorie malnutrition; I16.1 Hypertensive emergency; E87.0 Hyperosmolality and hypernatremia; R00.1 Bradycardia, unspecified; E87.5 Hyperkalemia; D63.8 Anemia in other chronic diseases classified elsewhere; E11.22 Type 2 diabetes mellitus with diabetic chronic kidney disease; E66.01 Morbid (severe) obesity due to excess calories; E78.00 Pure hypercholesterolemia, unspecified; E78.5 Hyperlipidemia, unspecified; I12.9 Hypertensive chronic kidney disease with stage 1 through stage 4 chronic kidney disease, or unspecified chronic kidney disease; I25.10 Atherosclerotic heart disease of native coronary artery without angina pectoris; I44.0 Atrioventricular block, first degree; N18.32 Chronic kidney disease, stage 3b; Z79.4 Long term (current) use of insulin; Z79.82 Long term (current) use of aspirin; Z82.49 Family history of ischemic heart disease and other diseases of the circulatory system; Z83.3 Family history of diabetes mellitus; Z98.84 Bariatric surgery status; E21.3 Hyperparathyroidism, unspecified; M10.9 Gout, unspecified; M19.90 Unspecified osteoarthritis, unspecified site; R74.01 Elevation of levels of liver transaminase levels; Z20.822 Contact with and (suspected) exposure to COVID-19; T46.1X5A Adverse effect of calcium-channel blockers, initial encounter; Y92.89 Other specified places as the place of occurrence of the external cause
CPT/HCPCS: 36415; 71045; 80048; 80053; 80307; 81001; 82962; 83690; 83735; 83880; 84100; 84443; 84484; 84550; 85025; 87426; 93005; 96374; 96375; J0360; J0610; J1644; J1815; J3475; J3490; J7030; U0003; U0005; 99285-25; G0378